=== PATIENT | female | born 1985 | race Caucasian/White ===

== ENCOUNTER 2017-10-13 04:19 | Emergency (ER) | payer SELFPAY ==
[2017-10-13] MEDS ORDERED: Ketorolac INJ* 60 MG/2 ML VIAL IM ONE (04:37)
[2017-10-13] MEDS ORDERED: traMADol TAB* 50 MG PO ONE (04:37)
[2017-10-13 05:04] VITALS: BP 146/95
--- NOTE | 2017-10-13 06:52 | ED ---
Mino Rodriguez Abhishek, scribed for Peter Gilmore MD on 10/13/17 at 0616 . Throat Pain/Nasal Congestion - HPI Summary HPI Summary: The pt is a 32 y/o female with a chief complaint of dental pain and is presenting to the [facility]. The pt states she has an "abscess in the tooth" and that the pain is "unbearable." Pt denies of fever. Pt also reports from being "sick" with vertigo. She also states that she needs new antibiotic. The patient rates the pain 6/10 in severity. Symptoms aggravated by nothing. Symptoms alleviated by nothing. - History of Current Complaint Chief Complaint: EDDentalPain Time Seen by Provider: 10/13/17 04:32 Hx Obtained From: Patient Onset/Duration: Gradual Onset, Still Present Associated Signs And Symptoms: Positive: Negative - Allergies/Home Medications Allergies/Adverse Reactions: Allergies Allergy/AdvReac Type Severity Reaction Status Date / Time codeine Allergy Vomiting Verified 10/13/17 04:27 Penicillins Allergy Rash And Verified 10/13/17 04:27 Itching Home Medications: Home Medications NK [No Home Medications Reported] 10/13/17 [History Confirmed 10/13/17] PMH/Surg Hx/FS Hx/Imm Hx Previously Healthy: Yes Sensory History: Denies: Hx Legally Blind, Hx Deafness Opthamlomology History: Denies: Hx Legally Blind Infectious Disease History: No Infectious Disease History: Denies: Traveled Outside the [place] in Last 30 Days - Family History Known Family History: Positive: Cardiac Disease, Diabetes - Social History Occupation: Employed Full-time Alcohol Use: None Substance Use Type: Reports: None Smoking Status (MU): Never Smoked Tobacco Review of Systems Negative: Fever Eyes: Negative ENT: Negative Cardiovascular: Negative Respiratory: Negative Gastrointestinal: Negative Genitourinary: Negative Musculoskeletal: Other - Dental Pain Skin: Negative Neurological: Negative Psychological: Other - sick from "vertigo" All Other Systems Reviewed And Are Negative: Yes Physical Exam - Summary Physical Exam Summary: VITAL SIGNS: Reviewed. GENERAL: ~Patient is a well-developed and nourished (MALE OR FEMALE) who is lying comfortable in the stretcher. Patient is not in any acute respiratory distress. HEAD AND FACE: No signs of trauma. No ecchymosis, hematomas or skull depressions. No sinus tenderness. EYES: PERRLA, EOMI x 2, No injected conjunctiva, no nystagmus. EARS: Hearing grossly intact. Ear canals and tympanic membranes are within normal limits. MOUTH: Dental lower left last molar decay; No signs of gingivitis NECK: Supple, trachea is midline, no adenopathy, no JVD, no carotid bruit, no c- spine tenderness, neck with full ROM. CHEST: Symmetric, no tenderness at palpation LUNGS: Clear to auscultation bilaterally. No wheezing or crackles. CVS: Regular rate and rhythm, S1 and S2 present, no murmurs or gallops appreciated. ABDOMEN: Soft, non-tender. No signs of distention. No rebound no guarding, and no masses palpated. Bowel sounds are normal. EXTREMITIES: FROM in all major joints, no edema, no cyanosis or clubbing. NEURO: Alert and oriented x 3. No acute neurological deficits. Speech is normal and follows commands. SKIN: Dry and warm Triage Information Reviewed: Yes Vital Signs On Initial Exam: Initial Vitals Temp Pulse Resp BP Pulse Ox 97.8 F 99 16 151/96 99 10/13/17 04:23 10/13/17 04:23 10/13/17 04:23 10/13/17 04:23 10/13/17 04:23 Vital Signs Reviewed: Yes Diagnostics - Vital Signs Vital Signs Temp Pulse Resp BP Pulse Ox 10/13/17 05:02 98.6 F 101 16 146/95 98 10/13/17 04:23 97.8 F 99 16 151/96 99 - Laboratory Lab Statement: Any lab studies that have been ordered have been reviewed, and results considered in the medical decision making process. EENT Course/Dx - Course Course Of Treatment: The pt is a 32 y/o pt with a chief complaint of dental pain. The pt states she has an "abscess" in her teeth. The physicial exam showed dental decay and no sign of gingivitus. The pt will be discharged with a recommendation to follow up with her primary care physician and dentist. The dx will be tooth decay. - Diagnoses Provider Diagnoses: Tooth decay Discharge - Sign-Out/Discharge Documenting (check all that apply): Discharge - Home - Discharge Plan Condition: Good Disposition: HOME Patient Education Materials: Dental Abscess (ED), Toothache (ED) Referrals: Gómez Butler DDS [Medical Doctor] - (Follow up with Dentist today.) No Primary Care Phys,NOPCP [Primary Care Provider] - Additional Instructions: RETURN TO EMERGENCY DEPARTMENT FOR ANY NEW OR WORSENING SYMPTOMS The documentation as recorded by the Mino walters Abhishek accurately reflects the service I personally performed and the decisions made by me, Peter Gilmore MD.
== END 2017-10-13 05:04 | disposition home or self-care (01) ==
LOC: ED 04:19
DX: K02.9 Dental caries, unspecified (principal); R42 Dizziness and giddiness; Z88.5 Allergy status to narcotic agent; Z88.0 Allergy status to penicillin
CPT/HCPCS: 96372; 99282; A9270-GY; J1885

== ENCOUNTER 2017-12-19 23:17 | Emergency (ER) | payer SELFPAY ==
[2017-12-19] MEDS ORDERED: Meclizine TAB* 12.5 MG PO ONE (23:40)
--- NOTE | 2017-12-19 23:47 | ED ---
Dizziness - HPI Summary HPI Summary: 32-year-old female presents with vertigo for the past couple hours. She states she has history of vertigo. She denies any injury. She denies any headache. She does have a history of migraines has not had one recently. She denies any recent illness. She admits to some sinus congestion. She has not tried anything for the sinus congestion. She states it feels like her ears have a pop but they're not popping. she states everything sounds mutt. She states that the vertigo is worse with positional changes. She denies any chest pain or shortness of breath. No palpitations. She has history of vertigo and GERD. nothing is different about this episode expect she took dramamine which she normally takes without relief. She admits to nausea and vomiting. She states that antivert normal works for such but she does not have any. - History Of Current Complaint Chief Complaint: EDDizziness Stated Complaint: POSSIBLE VERTIGO Time Seen by Provider: 12/19/17 23:28 - Allergies/Home Medications Allergies/Adverse Reactions: Allergies Allergy/AdvReac Type Severity Reaction Status Date / Time codeine Allergy Vomiting Verified 12/19/17 23:24 Penicillins Allergy Rash And Verified 12/19/17 23:24 Itching promethazine [From Phenergan] Allergy muscle Verified 12/19/17 23:24 twitching PMH/Surg Hx/FS Hx/Imm Hx Endocrine/Hematology History: Denies: Hx Anticoagulant Therapy Sensory History: Denies: Hx Legally Blind, Hx Deafness Opthamlomology History: Denies: Hx Legally Blind Neurological History: Reports: Hx Migraine Infectious Disease History: No Infectious Disease History: Denies: Traveled Outside the [place] in Last 30 Days - Family History Known Family History: Positive: Cardiac Disease, Diabetes, Other - migraines - Social History Alcohol Use: None Substance Use Type: Reports: None Smoking Status (MU): Never Smoked Tobacco Review of Systems Negative: Fever Negative: Chest Pain Negative: Shortness Of Breath Neurological: Other - vertigo All Other Systems Reviewed And Are Negative: Yes Physical Exam Triage Information Reviewed: Yes Vital Signs On Initial Exam: Initial Vitals Temp Pulse Resp BP Pulse Ox 97.7 F 78 16 139/97 100 12/19/17 23:20 12/19/17 23:20 12/19/17 23:20 12/19/17 23:20 12/19/17 23:20 Vital Signs Reviewed: Yes Appearance: Positive: Well-Appearing Skin: Positive: Warm, Dry Head/Face: Positive: Normal Head/Face Inspection Eyes: Positive: Normal, EOMI, RL, Conjunctiva Clear ENT: Positive: Normal ENT inspection, Pharynx normal, TMs normal Respiratory/Lung Sounds: Positive: Clear to Auscultation, Breath Sounds Present Cardiovascular: Positive: Normal, RRR Abdomen Description: Positive: Nontender, Soft Bowel Sounds: Positive: Present Musculoskeletal: Positive: Normal Neurological: Positive: Sensory/Motor Intact, Alert, Oriented to Person Place, Time, CN Intact II-III - nystagmus Psychiatric: Positive: Normal Diagnostics - Vital Signs Vital Signs Temp Pulse Resp BP Pulse Ox 12/19/17 23:20 97.7 F 78 16 139/97 100 - Laboratory Result Diagrams: 12/19/17 23:45 12/19/17 23:45 Lab Statement: Any lab studies that have been ordered have been reviewed, and results considered in the medical decision making process. - EKG No standard instances EKG Rhythm: Sinus Rhythm EKG Interpretation: sinus rhythm Re-Evaluation - Re-Evaluation First Eval Re-Evaluation Time: 00:57 Change: Improved - vertigo less Second Eval Re-Evaluation Time: 01:18 Change: Improved Comment: symptoms resolve with another dose of antivert Dizzy Course/Dx - Course Course Of Treatment: 32-year-old female presents with vertigo for the past couple hours. She states she has history of vertigo. She denies any injury. She denies any headache. She does have a history of migraines has not had one recently. She denies any recent illness. She admits to some sinus congestion. She has not tried anything for the sinus congestion. She states it feels like her ears have a pop but they're not popping. she states everything sounds mutt. She states that the vertigo is worse with positional changes. She denies any chest pain or shortness of breath. No palpitations. She has history of vertigo and GERD. nothing is different about this episode expect she took dramamine which she normally takes without relief. She admits to nausea and vomiting. She states that antivert normal works for such but she does not have any. On exam has nystagmus noted. Normal neuro exam. gave antivert and vertigo improved. will write a script for vertigo. patient understand and agrees with plan. - Diagnoses Differential Diagnosis/HQI/PQRI: Benign Paroxysmal Positional Vertigo, Hypovolemia, Metabolic Abnormality Provider Diagnoses: Vertigo Discharge - Sign-Out/Discharge Documenting (check all that apply): Discharge/Admit/Transfer - Discharge Plan Condition: Good Disposition: HOME Prescriptions: Meclizine TAB* [Antivert 12.5 TAB*] 25 mg PO QID #20 tab Patient Education Materials: Vertigo (ED) [place] [facility] [place] Doctor[place] [facility] [place]] Additional Instructions: Establish care with primary to follow up Take antivert up to four tablets a day Drink plenty of fluids Return to ED if develop any new or worsening symptoms - Billing Disposition and Condition Condition: GOOD Disposition: Home
[2017-12-20] MEDS ORDERED: Ondansetron ODT TAB* 4 MG PO ONE (00:02)
[2017-12-20 00:10] LABS: EGFR Non-African American 72.1 (>60)
[2017-12-20] MEDS ORDERED: Magnesium Chloride EC TAB* 64 MG PO ONE (00:21)
[2017-12-20 00:40] LABS: Hematocrit 34 % (35-47); Hemoglobin 10.9 g/dl (12.0-16.0); Mean Corpuscular HGB Conc 32 g/dl (31-36); Mean Corpuscular Hemoglobin 23 pg (27-31); Mean Corpuscular Volume 70 fL (80-97); Mean Platelet Volume 8.2 um3 (7.4-10.4); Platelet Count 337 10^3/ul (150-450); Red Blood Count 4.85 10^6/ul (4.00-5.40); Red Cell Distribution Width 18 % (10.5-15); White Blood Count 8.2 10^3/ul (3.5-10.8)
[2017-12-20 00:41] LABS: ABS Basophils 0.1 10^3/ul (0-0.2); ABS Eosinophils 0.1 10^3/ul (0-0.6); ABS Lymphocytes 3.7 10^3/ul (1.0-4.8); ABS Monocytes 0.8 10^3/ul (0-0.8); ABS Neutrophils 3.5 10^3/ul (1.5-7.7)
[2017-12-20 00:42] LABS: ABS Nucleated RBC 0 10^3/ul; Eosinophil % 1.5 % (0-6); Lymphocyte % 45.1 % (25-47); Nucleated Red Blood Cells % 0.1
[2017-12-20] MEDS ORDERED: Meclizine TAB* 12.5 MG PO ONE (00:56)
[2017-12-20] MEDS ORDERED: M eclizine 25 MG # 6 TABS 25 MG PAK PO ONE (00:58)
[2017-12-20 01:35] VITALS: BP 118/78
== END 2017-12-20 01:35 | disposition home or self-care (01) ==
LOC: ED 23:17
DX: R42 Dizziness and giddiness (principal); K21.9 Gastro-esophageal reflux disease without esophagitis; Z88.5 Allergy status to narcotic agent; Z88.0 Allergy status to penicillin
CPT/HCPCS: 36415; 80053; 83735; 85025; 93005; 99282; A9270-GY

== ENCOUNTER 2021-06-17 10:39 | Inpatient (IN) ==
[2021-06-17] MEDS ORDERED: NS 0.9% 1000 ml BAG 1,000 ML IV ONE (12:27)
[2021-06-17] MEDS ORDERED: Ondansetron 4 mg VIAL 2 MG/ML 2 ml VIAL IV ONE (12:52)
[2021-06-17 14:02] LABS: ABS Basophils 0.1 10^3/ul (0-0.2); ABS Lymphocytes 2.1 10^3/ul (1.0-4.8); ABS Monocytes 0.8 10^3/ul (0-0.8); ABS Neutrophils 9.2 10^3/ul (1.5-7.7); Eosinophil % 0.4 %; Hematocrit 36 % (35-47); Hemoglobin 12.1 g/dL (12.0-16.0); Lymphocyte % 17.1 %; Mean Corpuscular HGB Conc 34 g/dL (31-36); Mean Corpuscular Hemoglobin 29 pg (27-31); Mean Corpuscular Volume 85 fL (80-97); Mean Platelet Volume 7.6 fL (7.4-10.4); Nucleated Red Blood Cells % 0.1; Platelet Count 367 10^3/uL (150-450); Red Blood Count 4.25 10^6 /uL (3.70-4.87); Red Cell Distribution Width 19 % (10-15); White Blood Count 12.2 10^3/uL (3.5-10.8)
[2021-06-17 14:16] LABS: Urine Appearance Clear; Urine Bilirubin Negative (Negative); Urine Blood 1+ (Negative); Urine Color Yellow; Urine Glucose Negative (Negative); Urine Ketones Negative (Negative); Urine Nitrite Negative (Negative); Urine Protein Negative (Negative); Urine Specific Gravity 1.009 (1.002-1.030); Urine Urobilinogen Negative (Negative)
[2021-06-17 14:19] LABS: Potassium 3.8 mmol/L (3.5-5.0)
[2021-06-17 14:20] LABS: Albumin 3.6 g/dL (3.2-5.2); Albumin/Globulin Ratio 0.9 (1-3); C Reactive Protein 44.52 mg/L (<8.01); Calcium 9.1 mg/dL (8.6-10.3); Magnesium 1.7 mg/dL (1.9-2.7); Total Bilirubin 0.5 mg/dL (0.2-1.0); Total Protein 7.6 g/dL (6.4-8.9); eGFR CKD-EPI 55.3 (>60)
[2021-06-17] MEDS ORDERED: Iodixanol (CONTRAST) 320 MG/ML 100 ML SDV IV ONE (14:22)
[2021-06-17 14:25] LABS: HCG Pregnancy 0.99 mIU/mL
[2021-06-17 14:30] LABS: Urine Bacteria 1+ (Absent); Urine Red Blood Cell Trace(0-2/hpf) (Absent); Urine Squamous Epithelial Cell Present (Absent); Urine White Blood Cell Absent (Absent)
[2021-06-17] MEDS ORDERED: Ondansetron 4 mg VIAL 2 MG/ML 2 ml VIAL IV PRN (17:14)
[2021-06-17] MEDS ORDERED: diPHENhydraMINE 25 mg TAB PO PRN (17:32)
[2021-06-17] MEDS ORDERED: Magnesium Sulfate IV 3 GM in NS 0.9% 100 ml BAG 100 ML IVPB ONE (17:32)
[2021-06-17] MEDS ORDERED: Enoxaparin 40 MG/0.4 ML SYR SUBCUT SCH (18:00)
[2021-06-18 06:40] LABS: ABS Basophils 0.1 10^3/ul (0-0.2); ABS Lymphocytes 2.7 10^3/ul (1.0-4.8); ABS Monocytes 0.9 10^3/ul (0-0.8); ABS Neutrophils 8.3 10^3/ul (1.5-7.7); Eosinophil % 0.4 %; Hematocrit 34 % (35-47); Hemoglobin 11.3 g/dL (12.0-16.0); Mean Corpuscular HGB Conc 34 g/dL (31-36); Mean Corpuscular Hemoglobin 29 pg (27-31); Mean Corpuscular Volume 86 fL (80-97); Mean Platelet Volume 7.6 fL (7.4-10.4); Platelet Count 342 10^3/uL (150-450); Red Blood Count 3.89 10^6 /uL (3.70-4.87); Red Cell Distribution Width 19 % (10-15)
[2021-06-18 06:53] LABS: Albumin 3.5 g/dL (3.2-5.2); Calcium 8.9 mg/dL (8.6-10.3); Globulin 3.6 g/dL (2-4); Total Bilirubin 0.5 mg/dL (0.2-1.0); Total Protein 7.1 g/dL (6.4-8.9); eGFR CKD-EPI 59.2 (>60)
[2021-06-18] MEDS ORDERED: NF: Linaclotide 145 mg CAP (NF) PO SCH (09:00)
[2021-06-18 13:10] VITALS: BP 140/83
[2021-06-18] MEDS ORDERED: cefTRIAXone 1 gm/50 mL NS BAG 1 GM/50 ML BAG IVPB SCH (18:00)
[2021-06-19 15:23] LABS: Protein C Activity 169 % (70 - 150)
[2021-06-20 13:06] LABS: DRVVT Screen Ratio 0.67 ratio (<1.20); LAC APTT 22 sec (25 - 37); Prothrombin Time(LAC) 10.9 sec (9.4 - 12.5)
== END 2021-06-18 13:45 | disposition home or self-care (01) | DRG 468 ==
LOC: ED 10:39 → EDHOLD 17:03 → MEDTELE 21:04
PROVIDERS: ADMIT Internal Medicine; ATTEND Internal Medicine